=== PATIENT | male | born 1950 | race Hispanic/Latino ===

== ENCOUNTER 2021-12-20 16:24 | Emergency (ER) | payer MEDICARE ==
[~2021-12-20] VITALS: Ht 177.8 cm; Wt 85.7 kg
[2021-12-20] MEDS ORDERED: AMOX TR-K CLV1 EAC1 PO (16:52)
== END 2021-12-20 16:55 | disposition home or self-care (01) ==
LOC: ED 16:24
DX: L03.012 Cellulitis of left finger (principal)
CPT/HCPCS: 99283